=== PATIENT | female | born 1995 | race Caucasian/White ===

== ENCOUNTER 2022-06-16 03:51 | Outpatient (CLI) | payer OTHER, SELFPAY ==
[2022-06-16 16:08] LABS: Glucose,1 Hr (Glucola) 123 mg/dL (80-140)
[2022-06-16 16:19] LABS: Abs Immature Grans 0.01 10^3/uL (0.0-0.06); Absolute Basophil Count 0.01 10^3/uL (0.0-0.2); Absolute Eosinophil Count 0.02 10^3/uL (0.0-0.7); Absolute Lymphocyte Count 2.64 10^3/uL (1.2-3.4); Absolute Monocyte Count 0.54 10^3/uL (0.1-0.8); Absolute Neutrophil Count 5.26 10^3/uL (1.2-6.7); Basophils % 0.1; Eosinophils % 0.2; HCT 33.4 % (36.0-46.0); HGB 11.6 g/dL (11.2-15.7); Immature Grans % 0.1; Lymphocytes % 31.1; MCH 30.1 pg (27.0-33.0); MCHC 34.7 % (32.0-36.0); MCV 87 fL (80-95); MPV 9.3 fL (8.0-11.0); Monocytes % 6.4; Neutrophils % 62.1; Platelet Count 341 10^3/uL (130-400); RBC 3.85 10^6/uL (3.93-5.22); RDW 12.4 % (11.7-14.6); RDW-SD 39.4 fL; WBC 8.48 10^3/uL (4.4-10.8)
[2022-06-16 17:12] LABS: TSH (W/Ref FT4) 0.67 uIU/mL (0.36-3.74)
[2022-06-18 09:10] LABS: Hepatitis B Surface Ag Negative (Negative)
[2022-06-18 09:38] LABS: HIV-1/2 Ag & Ab Screen Negative (Negative)
[2022-06-18 11:02] LABS: Hepatitis C Ab w Rflx HCV PCR Negative (Negative)
[2022-06-18 11:44] LABS: Varicella IgG Antibody Positive (See Note)
[2022-06-18 11:46] LABS: Rubella IgG Ab (UVM) Positive (See Note)
[2022-06-19 15:38] LABS: Syphilis IgG w/Reflex Nonreactive (Nonreactive)
[2022-06-23 01:49] LABS: Specimen WB Whole Blood
[2022-07-10 00:07] LABS: Result Summary NEGATIVE
[2022-07-10 08:58] LABS: Specimen Whole Blood
== END 2022-06-16 03:52 | disposition home or self-care (01) ==
LOC: LBO 03:51
PROVIDERS: Visit Provider Advanced Practice Midwife
DX: Z34.91 Encounter for supervision of normal pregnancy, unspecified, first trimester (principal)
CPT/HCPCS: 81329; 82950; 86787; 86803; 86850; 86900; 86901; 87340; 87389; 81220; 84443; 85025; 86762; 86780

== ENCOUNTER 2022-06-16 18:37 | Outpatient (REF) | payer OTHER, SELFPAY ==
[2022-06-16 17:56] LABS: *AMPHETAMINES SCREEN URINE Negative (Negative); *BARBITURATES SCREEN URINE Negative (Negative); *BENZODIAZEPINES SCREEN URINE Negative (Negative); Cannabinoids THC Negative (Negative); Cocaine Screen,Urine Negative (Negative); METHADONE URINE SCREEN Negative (Negative); OPIATES URINE SCREEN Negative (Negative); Tricyclic Antidepressants Negative (Negative)
[2022-06-18 15:03] LABS: Chlamydia Result Negative (Negative); GC Result Negative (Negative)
[2022-06-24 12:15] LABS: Buprenorphine Negative ng/mL (Cutoff: 5.0); Norbuprenorphine Negative ng/mL (Cutoff: 2.5)
== END 2022-06-16 18:38 | disposition home or self-care (01) ==
LOC: LBN 18:37
PROVIDERS: Visit Provider Advanced Practice Midwife
DX: Z34.91 Encounter for supervision of normal pregnancy, unspecified, first trimester
CPT/HCPCS: 80307; 87491; 87591; 81220; 87086

== ENCOUNTER 2022-12-05 17:07 | Outpatient (REF) | payer OTHER, SELFPAY ==
[2022-12-05 17:34] LABS: Tricyclic Antidepressants Negative (Negative)
[2022-12-05 17:40] LABS: *AMPHETAMINES SCREEN URINE Positive (Negative); *BARBITURATES SCREEN URINE Negative (Negative); *BENZODIAZEPINES SCREEN URINE Negative (Negative); Cannabinoids THC Negative (Negative); Cocaine Screen,Urine Negative (Negative); METHADONE URINE SCREEN Negative (Negative); OPIATES URINE SCREEN Negative (Negative)
== END 2022-12-05 17:08 | disposition home or self-care (01) ==
LOC: LBN 17:07
PROVIDERS: Visit Provider Advanced Practice Midwife
DX: Z34.93 Encounter for supervision of normal pregnancy, unspecified, third trimester (principal); Z3A.36 36 weeks gestation of pregnancy
CPT/HCPCS: 80307

== ENCOUNTER 2022-12-12 16:50 | Outpatient (REF) | payer OTHER, SELFPAY | END 2022-12-12 16:51 | disposition home or self-care (01) | LOC: LBN 16:50 | PROVIDERS: Visit Provider Advanced Practice Midwife | DX: Z34.93 Encounter for supervision of normal pregnancy, unspecified, third trimester (principal) | CPT/HCPCS: 87081 ==

== ENCOUNTER 2023-01-06 01:50 | Inpatient (IN) | payer OTHER, SELFPAY ==
[2023-01-06] VITALS (149 sets, daily range): BP systolic 96–149; BP diastolic 51–89; PULSE 67–131; RESP 16–18; TEMP 36.5–37; O2SAT 86–100; BMI 36.5
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
[2023-01-06 02:31] LABS: HCT 35.9 % (36.0-46.0); MCH 29.1 pg (27.0-33.0); MCHC 33.4 % (32.0-36.0); MCV 87 fL (80-95); MPV 8.9 fL (8.0-11.0); Platelet Count 412 10^3/uL (130-400); RBC 4.12 10^6/uL (3.93-5.22); RDW 12.7 % (11.7-14.6); RDW-SD 40.3 fL
--- NOTE | 2023-01-06 03:15 | W.ANESPROC ---
Intrathecal Analgesia Date Performed: 01/06/23 Procedure Time: 03:05 Requesting Provider: Alessandra Ferguson Procedure Location: Obstetrics Reason Performed: Labor Intrathecal Analgesia Standard Monitors Applied: Blood Pressure, SpO2 and See EMR for corresponding vital signs Patient Position: Sitting Timeout Performed: Yes Sedation Given (Indicate Dose Given): No Sedation given Patient Mental Status: Awake Sterility: Hand Hygiene, Surgical Cap, Surgical Mask, Sterile Gloves, Sterile Drape/Sheet, Sterile Gown and Chlorhexidine Placement Site: L3-L4 Interspace Spinal Needle Type: Rob 25 Gauge Needle Length: 3.5 Inch Spinal Procedure: Site Prepped, Sterile Drape Placed, 1% Lidocaine to skin and subcutaneous tissue with 25G needle, Introducer Needle Used, Spinal Needle Placed, Positive CSF Flow and Medication Injected Paresthesia: Left Paresthesia Duration: Transient and Right Paresthesia Duration: Transient Spinal Local Anesthetic (Indicate Dose Given): Bupivacaine 0.25% PF (ml) Dose:: 1mL Additives (Indicate Dose Given): Fentanyl PF Dose:: 20 mcg and Duramorph PF Dose:: 150mcg Ultrasound: Not Used Number of Attempts (See previous attempts in note section): 3 Procedure Tolerated: No Complications Procedure Outcome: Successful Performed By: Aster Evangelista
[2023-01-06 03:17] LABS: Source Nasal/Nares
[2023-01-06] MEDS: fentaNYL 100 MCG/2 ML VIAL 25 MCG IVP ×2 (03:18→04:35)
[2023-01-06] MEDS: Bupivacaine 0.25% Pres-Free 10 ML VIAL IT (03:31)
[2023-01-06] MEDS: fentaNYL 100 MCG/2 ML VIAL IT (03:31)
--- NOTE | 2023-01-06 03:35 | PGE_ITS ---
Date of service: 01/06/23 Time of Service: 03:35 Pelvic Exam Dilation: 8 Effacement (%): 95 station: -2 Position: LOP Cervix Position: mid Consistency: soft Contractions Monitor Mode: External Contraction Frequency(min): 2-4 Intensity: Moderate/Strong Fetus A Monitor: External (US) Heart Rate Baseline: 125 Variability: Moderate (6-25 BPM) Categories: Category I Accelerations: 15 X 15 Decelerations: None Amniotic Membrane Status: Ruptured Rupture Method: Spontaneous Amniotic Fluid: Meconium Amount: small Date of Membrane Rupture: 01/06/23 Time of Membrane Rupture: 02:20 Assessment and Plan Assessment and plan (1) Uterine contractions: Status: Acute Assessment and plan: A: multipara in active labor meconium fluid, category 1 tracing regional anesthesia to good effect P: monitor for progress through transition consider pitocin augmentation if indicated position to encourage rotation and descent anticipate Objective Abnormal lab results 01/06/23 Range/Units 02:16 WBC 14.50 H (4.4-10.8) 10^3/uL Hct 35.9 L (36.0-46.0) % Plt Count 412 H (130-400) 10^3/uL Pulse BP Pulse Ox 75 124/76 99 01/06/23 03:29 01/06/23 03:29 01/06/23 03:28 Laboratory Results WBC 14.50 10^3/uL (4.4-10.8) H 01/06/23 02:16 RBC 4.12 10^6/uL (3.93-5.22) 01/06/23 02:16 Hgb 12.0 g/dL (11.2-15.7) 01/06/23 02:16 Hct 35.9 % (36.0-46.0) L 01/06/23 02:16 MCV 87 fL (80-95) 01/06/23 02:16 MCH 29.1 pg (27.0-33.0) 01/06/23 02:16 MCHC 33.4 % (32.0-36.0) 01/06/23 02:16 RDW 12.7 % (11.7-14.6) 01/06/23 02:16 Plt Count 412 10^3/uL (130-400) H 01/06/23 02:16 MPV 8.9 fL (8.0-11.0) 01/06/23 02:16 COVID-19 Source Nasal/Nares 01/06/23 03:10 Patient ABO/Rh O Positive 01/06/23 02:16 Antibody Screen NEGATIVE 01/06/23 02:16 Vital Signs Reviewed: Yes Objective Narrative Objective Narrative: PEOPLESOFT CONSULTANT was able to place intrathecal anesthesia after some difficulty Pt given 25 mcg fentanyl IVP during anesthesia placement After pt was made comfortable, SVE for 8/95% vtx -2, meconium fluid noted EFM remains category 1, contractions continue q 2-4 minutes Vital signs are stable, pt dozing in LLP FOB and pt's mother at bedside for support Subjective Interval history since last seen: comfortable, drowsy
[2023-01-06 03:51] LABS: COVID-19 PCR Negative (Negative)
--- NOTE | 2023-01-06 05:06 | W.PM.OBNL1 ---
Date of service: 01/06/23 Time of Service: 05:06 Pelvic Exam Dilation: 9.5 Effacement (%): 100 station: -1 Position: LOT Consistency: soft Contractions Monitor Mode: External Contraction Frequency(min): q2-4 Contraction Duration(sec): 60-70 Intensity: Moderate/Strong Fetus A Monitor: External (US) Heart Rate Baseline: 130 Variability: Moderate (6-25 BPM) Categories: Category I Accelerations: 15 X 15 Decelerations: Early Recurrence: Intermittent Amniotic Membrane Status: Ruptured Assessment and Plan Assessment and plan (1) Uterine contractions: Status: Acute Assessment and plan: A: multipara with intrathecal, pain relief waning progressed to 9.5 cm dilation, vtx descended to -2/-1, LOT category 1 tracing, meconium fluid EFW 3800 gms, pelvis is adequate P: lateral positioning to encourage rotation and descent pt encouraged to rest between contrx reassess for 2nd stage Objective Vital Signs Reviewed: Yes Objective Narrative Objective Narrative: Pt rested well for 1 hr, then began vocalizing with contrx Category 1 tracing, early decel occasionally noted SVE rim, vtx -2/-1, contrax are frequent and strong Attempted trial of pushing while manually reducing rim, but rim persists Pt given fentanyl 25 mcg IVP to assist with pain management Subjective Interval history since last seen: Pain relief from intrathecal is decreasing, pt vocalizing through contractions, occasionally feels pelvic pressure.
--- NOTE | 2023-01-06 06:04 | PGE_ITS ---
Date of service: 01/06/23 Time of Service: 06:04 Informed Consent Informed Consent: Regional Anesthesia and Risk,Benefits,Alternatives Discussed (pt coping poorly with contractions, vocalizing loudly, crying, difficulty moving) Pelvic Exam Dilation: 9 station: -2 Fetus A Monitor: Doppler Heart Rate Baseline: 135 FHR Rhythm: Regular Characteristics: Normal Amniotic Membrane Status: Ruptured Amniotic Fluid: Meconium Assessment and Plan Assessment and plan (1) Uterine contractions: Status: Acute Assessment and plan: A: dilation and descent stalled @ 9/-2 Pt very uncomfortable, requesting REGISTERED NURSE SURGICAL SERVICES to place epidural need for pain management/control No void since admission P: Straight cath to empty bladder Encourage use of nitrous REGISTERED NURSE [employer]GICAL SERVICES paged, pt status reviewed Dr. Charles updated on labor progress Objective Vital Signs Reviewed: Yes Objective Narrative Objective Narrative: vital signs stable, category 1 tracing pt coping poorly with contractions, very tense and upset with pain has received 2 doses fentanyl 25 mcg IVP lack of progress for 1-2 hours noted unable to void, straight cath'ed for 100 ml dark concentrated urine IV site infiltrated, restarted at new site Subjective Interval history since last seen: Pt requesting anesthesia to place epidural since intrathecal has stopped working. Feels the need to void but unable to when on bedside commode. Vocalizing loudly with q2-3 minute contractions.
[2023-01-06] MEDS: Terbutaline 1 MG/ML VIAL 0.25 MG SC (06:38)
--- NOTE | 2023-01-06 06:41 | W.PM.OBNL1 ---
Date of service: 01/06/23 Time of Service: 06:41 Informed Consent Informed Consent: Regional Anesthesia and Risk,Benefits,Alternatives Discussed (pt coping poorly with contractions, vocalizing loudly, crying, difficulty moving) Assessment and Plan Assessment and plan (1) Uterine contractions: Status: Acute Assessment and plan: Contractions are every 2 minutes CLINICAL OPERATIONS CONSULTANT in room to place epidural Terbutaline 0.25 mg SC given to decrease uterine activity for epidural insertion (2) Slow progress in first stage of labor: Status: Acute Objective Abnormal lab results 01/06/23 Range/Units 02:16 WBC 14.50 H (4.4-10.8) 10^3/uL Hct 35.9 L (36.0-46.0) % Plt Count 412 H (130-400) 10^3/uL Pulse BP Pulse Ox 77 137/78 99 01/06/23 04:31 01/06/23 04:31 01/06/23 03:28 Laboratory Results WBC 14.50 10^3/uL (4.4-10.8) H 01/06/23 02:16 RBC 4.12 10^6/uL (3.93-5.22) 01/06/23 02:16 Hgb 12.0 g/dL (11.2-15.7) 01/06/23 02:16 Hct 35.9 % (36.0-46.0) L 01/06/23 02:16 MCV 87 fL (80-95) 01/06/23 02:16 MCH 29.1 pg (27.0-33.0) 01/06/23 02:16 MCHC 33.4 % (32.0-36.0) 01/06/23 02:16 RDW 12.7 % (11.7-14.6) 01/06/23 02:16 Plt Count 412 10^3/uL (130-400) H 01/06/23 02:16 MPV 8.9 fL (8.0-11.0) 01/06/23 02:16 COVID-19 Source Nasal/Nares 01/06/23 03:10 SARS-CoV-2 (PCR) Negative (Negative) 01/06/23 03:10 Patient ABO/Rh O Positive 01/06/23 02:16 Antibody Screen NEGATIVE 01/06/23 02:16 Results Hemoglobin/Hematocrit: Hgb 12.0 g/dL (11.2-15.7) 01/06/23 02:16 Hct 35.9 % (36.0-46.0) L 01/06/23 02:16 Abnormal Lab Findings: Abnormal Labs 01/06/23 02:16 WBC 14.50 H Hct 35.9 L Plt Count 412 H
[2023-01-06] MEDS: FentaNYL/ROPIvacaine 2 mcg/ml and 0.1% 200 ML CADD Cassette EP (06:45)
[2023-01-06] MEDS: Lactated Ringers 1,000 ML 125 ML IV ×3 (07:04→11:25)
[2023-01-06] MEDS: Lactated Ringers 500 ML IV ×2 (07:57→09:30)
--- NOTE | 2023-01-06 08:25 | W.PM.OBNL1 ---
Date of service: 01/06/23 Time of Service: 08:25 Informed Consent Informed Consent: Regional Anesthesia and Risk,Benefits,Alternatives Discussed Pelvic Exam Dilation: 9 (unchanged exam, cvx becoming somewhat edematous) station: -2 Contractions Monitor Mode: External Contraction Frequency(min): q3-4 Intensity: Moderate/Strong Fetus A Heart Rate Baseline: 135 Variability: Moderate (6-25 BPM) Categories: Category I Accelerations: 15 X 15 Decelerations: None Amniotic Membrane Status: Ruptured Assessment and Plan Assessment and plan (1) Slow progress in first stage of labor: Status: Acute Assessment and plan: A: Effective epidural anesthesia Contractions returning after terb dose given 0630 No descent or further progress from (since 0500) Category 1 tracing P: Reviewed pt's labor course with Dr. Knight IUPC inserted in attempt to improve contraction assessment Possible indication for surgical delivery discussed with pt (2) Uterine contractions: Status: Acute Objective Vital Signs Reviewed: Yes Subjective Interval history since last seen: Pt is comfortable with epidural anesthesia, has been doing stretches to encourage descent
--- NOTE | 2023-01-06 09:01 | W.ANESNEU ---
Epidural/Spinal Catheter Date Performed: 01/06/23 Procedure Start: 06:41 Procedure Stop: 07:10 Requesting Provider: Alessandra Ferguson Procedure Location: Obstetrics Reason Performed: Labor Epidural Standard Monitors Applied: Blood Pressure, SpO2 and See EMR for corresponding vital signs Patient Position: Sitting Sedation Given (Indicate Dose Given): No Sedation given Patient Mental Status: Awake Sterility: Hand Hygiene, Surgical Cap, Surgical Mask, Sterile Gloves, Sterile Drape/Sheet and Chlorhexidine Procedure Location: L2-L3 Interspace Epidural Needle: Tuohy 17 Guage Needle Length: 3.5 Inch Needle Approach: Midline Epidural Procedure: Skin Prepped, Sterile Drape Placed, 1% Lidocaine to skin and subcutaneous tissue with 25G needle, Tuohy Needle placed, WESTLEY to Saline Used, Epidural Catheter Placed and Positive Heme Noted (During first procedure attempt, WESTLEY to saline and catheter threaded, positive heme. Catheter and needle removed.) Catheter Placed?: Catheter Placed Test Dose (Indicate Dose Given): 3ml 1.5% Lidocaine with 1:200K Epinephrine Given Loss of Resistance Depth (cm): 8 Catheter depth at skin (cm): 16 Dressing: Sorbaview Dressing Placed, Mastisol Used and Dressing reinforced with Tape Epidural Provider Bolus (Indicate Dose Given): Total bolus dose given in 3-5 ml divided doses and Total Ropivacaine 0.1% with Fentanyl 2mcg/ml Given from pump. (ml) Dose:: 10 mL in divided doses Additives (Indicate Dose Given ): None Infusion Medication: Medication Infusion Began Medication Infusion: Ropivacaine 0.1% with Fentanyl 2mcg/ml Maintenance Infusion Rate (ml/hour): 12 PCEA Bolus Dose (ml): 5 Block Level: T9 Paresthesia: None Ultrasound: Not Used Number of Attempts (See previous attempts in note section): 2 Procedure Tolerated: No Complications and Patient tolerated well Procedure Outcome: Successful Procedure Comment:: Paged back after placement of previous intrathecal anesthetic that was technically difficult to place and required multiple patient repositions. Return to patient bedside at 6:30 and covered again the difference between an epidural and intrathecal. Patient wishes to proceed with epidural placement and was checked to be at 9.5 centimeters prior to start of procedure. Full discussion was had with patient and family about the use of epidural catheter if C/S was required given the difficulty of the SAB placement. Patient and family verbalizes understanding. Handoff reported to Carolyn Fierro CRNA. Performed By: Aster Evangelista
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
[2023-01-06] MEDS: AZITHROMYCIN 500 MG in Normal Saline 250 ML 250 MG IVPB (10:50)
--- NOTE | 2023-01-06 10:51 | W.PM.OBNL1 ---
Date of service: 01/06/23 Time of Service: 10:51 Informed Consent Informed Consent: Section Delivery, Regional Anesthesia and Risk,Benefits,Alternatives Discussed Contractions Monitor Mode: Internal Contraction Frequency(min): 3 Fetus A Heart Rate Baseline: 145 Variability: Moderate (6-25 BPM) Categories: Category I Assessment and Plan Assessment and plan (1) Arrested labor: Status: Acute Assessment and plan: Vaginal atrophy patient has failed to dilate her cervix beyond 9 cm, cervix is edematous, vertex is not well into the pelvis. Would all suggest labor arrest. Was benefits alternatives of section discussed with patient, and her . a full informed consent obtained. (2) 40 weeks gestation of : Status: Acute Objective Abnormal lab results 01/06/23 Range/Units 02:16 WBC 14.50 H (4.4-10.8) 10^3/uL Hct 35.9 L (36.0-46.0) % Plt Count 412 H (130-400) 10^3/uL Temp Pulse Resp BP Pulse Ox 97.9 F 82 18 126/74 97 01/06/23 09:52 01/06/23 10:42 01/06/23 09:52 01/06/23 10:42 01/06/23 09:11 Laboratory Results WBC 14.50 10^3/uL (4.4-10.8) H 01/06/23 02:16 RBC 4.12 10^6/uL (3.93-5.22) 01/06/23 02:16 Hgb 12.0 g/dL (11.2-15.7) 01/06/23 02:16 Hct 35.9 % (36.0-46.0) L 01/06/23 02:16 MCV 87 fL (80-95) 01/06/23 02:16 MCH 29.1 pg (27.0-33.0) 01/06/23 02:16 MCHC 33.4 % (32.0-36.0) 01/06/23 02:16 RDW 12.7 % (11.7-14.6) 01/06/23 02:16 Plt Count 412 10^3/uL (130-400) H 01/06/23 02:16 MPV 8.9 fL (8.0-11.0) 01/06/23 02:16 COVID-19 Source Nasal/Nares 01/06/23 03:10 SARS-CoV-2 (PCR) Negative (Negative) 01/06/23 03:10 Patient ABO/Rh O Positive 01/06/23 02:16 Antibody Screen NEGATIVE 01/06/23 02:16 Subjective Interval history since last seen: Patient seen and has been examined by our midwifery service. No cervical change. Still 9 cm with failure to descend. Saw the patient again. Risk benefits and alternatives of delivery discussed. Full informed consent was obtained. Patient understands the risk of infection, bleeding, injury to surrounding organs, risk of anesthesia. All questions were answered with Results Hemoglobin/Hematocrit: Hgb 12.0 g/dL (11.2-15.7) 01/06/23 02:16 Hct 35.9 % (36.0-46.0) L 01/06/23 02:16 Abnormal Lab Findings: Abnormal Labs 01/06/23 02:16 WBC 14.50 H Hct 35.9 L Plt Count 412 H
[2023-01-06] MEDS: Ondansetron 4 MG/2 ML VIAL IVP (10:53)
[2023-01-06] MEDS: Bupivacaine 0.25% Pres-Free 30 ML VIAL (11:41)
[2023-01-06] MEDS: ceFAZolin 2 GM/50 ML BAG IVPB (11:42)
--- NOTE | 2023-01-06 13:33 | W.PM.OBCSECT ---
Date of service: 01/06/23 Time of Service: 13:33 Operative Note Operative Note Delivery Method: Unscheduled STAT: No and Primary NTSV>37 Weeks: No DATE OF PROCEDURE: 01/06/23 PRE-OP DIAGNOSES: Term , labor arrest POST-OP DIAGNOSES: same Delivery of a viable male , persistent occiput posterior PROCEDURE: Primary low transverse section SURGEON: Juhi Knight Crew Person: Audrey Jasmine Anesthesia: local and epidural Estimated blood loss (mL): 500 Pathology: none sent Complications: None Patient was transported to: floor Patient's condition: stable Indications: Labor arrest at 8 cm Findings: Viable male . Persistent occiput posterior. Normal-appearing tubes, ovaries, uterus. Procedure Description: After full informed consent was obtained, patient taken the operating suite with an IV running. She is placed in the dorsal supine position and epidural was redosed for surgical analgesia. She was placed with a leftward tilt and prepped and draped in the usual sterile fashion including vaginal preparation. vertex was noted to be well out of the pelvis and cervix approximately 8 cm with significant edema. A suspected occiput posterior position. Hooks catheter had been previously inserted for continuous bladder drainage. Pneumatic Pression stockings were placed for DVT prophylaxis. She received 2 g of Ancef and 500 mg of Zithromax. After analgesia was tested and found to be adequate, quarter percent Marcaine was used to infiltrate the surgical site. A low transverse skin incision was made and carried down to the underlying fascia which was nicked in the midline and extended laterally. The fascia was then split from the rectus muscles rectus muscles identified split in the midline peritoneum identified tented up and entered sharply and the peritoneal incision extended superiorly and inferiorly. At this point the bladder blade was inserted and the vesicouterine peritoneum identified tented up and entered sharply. Bladder blade was reinserted after creation of the bladder flap. A low transverse uterine incision was made with a scalpel and extended bluntly laterally. Noted was be the vertex in the occiput posterior position with mouth and nose at the site of the surgical incision. With meticulous attention to the lower uterine segment the vertex was delivered through the incision. There was no evidence of nuchal cord. Shoulders followed with ease. Three-vessel cord was noted clamped x2 and cut after the appropriate interval and the was handed off to the waiting police or patrol park officer. At this point cord blood gases segment and cord blood samples were obtained. Due to appropriate Apgars, cord blood gas was not sent to the lab. The placenta was manually expressed from the uterus and the uterus cleared of all clot and debris. At this point the uterus was exteriorized and the uterine incision was closed using 0 Monocryl suture first in a running locked fashion, second layer was imbricating. The uterine incision was again inspected and found to be hemostatic. Uterus was returned to the abdomen and abdomen irrigated with copious amounts of normal saline. Uterine incision was then again reinspected and found to be hemostatic. At this point the fascial incision was closed using 0 Vicryl suture in a running fashion. Subcu was reapproximated with 3-0 Vicryl and the skin edge reapproximated with 4-0 undyed Monocryl in a subcuticular fashion. Mastisol and Steri-Strips were placed as well as a sterile dressing. The uterus was firm and 2 cm below the umbilicus. Patient was taken back to the center with a Hooks catheter draining clear yellow urine EBL: 500 mL Fluids: Crystalloid per anesthesia Pathology: None sent Findings: Delivery of a viable male infant from the persistent occiput posterior position. Normal tubes, ovaries, uterus. Complications: None apparent.
--- NOTE | 2023-01-06 14:25 | W.ANESPOSTOP ---
Postoperative Evaluation Date, Time and Location Date Performed: 01/06/23 Time Performed: 14:28 Patient Location: Obstetrics Vital Signs Most Recent Imported Vital Signs: Most Recent Vital Signs Temp Pulse Resp BP Pulse Ox 36.9 C 67 17 123/73 100 01/06/23 10:57 01/06/23 14:23 01/06/23 10:57 01/06/23 14:12 01/06/23 14:23 Pain Score Most Recent Pain Score: Most Recent Pain Score Pain Level [Abdomen] 0 01/06/23 10:57 Assessment Mental Status: Awake (Alert & Oriented to Patient Baseline) Airway and Respiratory Function: Patent airway with normal (patient baseline) respiratory exam Cardiovascular Function: Hemodynamically Stable Hydration Status: Adequately Hydrated Nausea & Vomiting: No Nausea or Vomiting Pain: Pain is tolerable per patient Peripheral Nerve Block: Other (Epidural appropriately resolving. Reported some discomfort, but tolerable at this time. Catheter removed with tip intact by myself in the operating room. )
--- NOTE | 2023-01-06 16:55 | OBPPV_ITS ---
Date of service: 01/06/23 Time of Service: 16:56 Assessment and Plan Assessment and plan (1) Status post primary low transverse section: Status: Acute Assessment and plan: Patient is postoperative day #0 status post primary low-transverse section for arrest of labor. Overall doing well. Will encourage ambulation. Hooks catheter to be removed when patient ambulatory. CBC pending for the morning. Pain control as needed. All questions answered tonight. (2) Arrested labor: Status: Acute Subjective Subjective Interval history: Patient seen this afternoon. Doing well. Pain is well controlled. Breast- feeding without difficulty. All questions answered and surgical procedure reviewed. Rarden baby status: Doing well Rarden feeding status: Exclusively breast feeding Exam Physical Exam Vital signs: Temp Pulse Resp BP Pulse Ox 98.6 F 75 16 105/63 98 01/06/23 15:39 01/06/23 16:25 01/06/23 15:39 01/06/23 16:25 01/06/23 15:58 Constitutional Constitutional: no acute distress Respiratory Exam Respiratory Exam: Normal Cardiovascular Exam Cardiovascular Exam: Normal Abdominal Exam Abdomen: Tender Fundal Exam Fundus: Below Umbilicus and Firm Results Hemoglobin/Hematocrit: Hgb 12.0 g/dL (11.2-15.7) 01/06/23 02:16 Hct 35.9 % (36.0-46.0) L 01/06/23 02:16 Abnormal Lab Findings: Abnormal Labs 01/06/23 02:16 WBC 14.50 H Hct 35.9 L Plt Count 412 H
[2023-01-06] MEDS: Ketorolac 30 MG/ML VIAL IVP (18:10)
[2023-01-06] MEDS: Normal Saline Flush 10 ML SYR IVP (18:39)
[2023-01-06] MEDS: oxyCODONE 5 mg/Acetaminophen 325 mg TAB PO (19:56)
[2023-01-07 01:16] VITALS: BP 104/62; PULSE 72; RESP 16; TEMP 36.7
[2023-01-07] MEDS: Docusate Sodium 100 MG CAP PO ×2 (01:27→20:07)
[2023-01-07] MEDS: oxyCODONE 5 mg/Acetaminophen 325 mg TAB PO ×4 (01:27→20:08)
[2023-01-07] MEDS: Ketorolac 30 MG/ML VIAL IVP ×2 (01:27→08:31)
[2023-01-07 05:50] VITALS: BP 105/66; PULSE 75; RESP 15; TEMP 36.7
[2023-01-07 07:08] LABS: Abs Immature Grans 0.06 10^3/uL (0.0-0.06); Absolute Basophil Count 0.03 10^3/uL (0.0-0.2); Absolute Eosinophil Count 0.03 10^3/uL (0.0-0.7); Absolute Monocyte Count 0.91 10^3/uL (0.1-0.8); Basophils % 0.2; Eosinophils % 0.2; HCT 27.8 % (36.0-46.0); HGB 9.5 g/dL (11.2-15.7); Immature Grans % 0.4; Lymphocytes % 23.3; MCH 29.7 pg (27.0-33.0); MCHC 34.2 % (32.0-36.0); MCV 87 fL (80-95); MPV 9.6 fL (8.0-11.0); Monocytes % 6.8; Neutrophils % 69.1; Platelet Count 316 10^3/uL (130-400); RDW 13.2 % (11.7-14.6); WBC 13.37 10^3/uL (4.4-10.8)
[2023-01-07 07:09] LABS: Absolute Lymphocyte Count 3.12 10^3/uL (1.2-3.4); Absolute Neutrophil Count 9.24 10^3/uL (1.2-6.7)
[2023-01-07 08:15] VITALS: BP 104/57; PULSE 85; RESP 16; TEMP 36.9; O2SAT 95
[2023-01-07] MEDS: Normal Saline Flush 10 ML SYR IVP (08:31)
[2023-01-07] MEDS: Pantoprazole 40 MG TABCR PO (08:32)
[2023-01-07] MEDS: Sertraline 50 MG TAB PO (08:33)
--- NOTE | 2023-01-07 08:42 | OBPPV_ITS ---
Date of service: 01/07/23 Time of Service: 08:42 Assessment and Plan Assessment and plan (1) Status post primary low transverse section: Status: Acute Assessment and plan: Postoperative day 1 status post primary low-transverse section for labor arrest and persistent occiput posterior position. Doing well. Ambulating. Tolerating regular diet. Vital signs are stable. Morning he moglobin stable at 9.5. We will continue to monitor. Routine care. Anticipate discharge in the next 24 to 48 hours. Exam Physical Exam Vital signs: Temp Pulse Resp BP Pulse Ox 98.1 F 75 15 105/66 99 01/07/23 05:50 01/07/23 05:50 01/07/23 05:50 01/07/23 05:50 01/06/23 20:00 Vital Signs Reviewed: Yes Constitutional Constitutional: no acute distress HEENT Exam HEENT Exam: Normal Neck Exam Neck Exam: Normal Respiratory Exam Respiratory Exam: Normal Abdominal Exam Abdomen: Tender Comments: Incision without areas of erythema or ecchymosis. Pressure dressing was removed with scant serosanguineous drainage. Fundal Exam Fundus: Below Umbilicus and Firm Extremities Exam Extremity Exam: Normal; negative Calf Tenderness or Edema Skin Exam Skin Exam: Normal Results Hemoglobin/Hematocrit: Hgb 9.5 g/dL (11.2-15.7) L D 01/07/23 06:05 Hct 27.8 % (36.0-46.0) L 01/07/23 06:05 Abnormal Lab Findings: Abnormal Labs 01/06/23 01/07/23 02:16 06:05 WBC 14.50 H 13.37 H RBC 3.20 L Hgb 9.5 L D Hct 35.9 L 27.8 L Plt Count 412 H Absolute Neutrophils 9.24 H Absolute Monocytes 0.91 H
[2023-01-07 13:15] VITALS: BP 114/67; PULSE 85; RESP 16; TEMP 36.5; O2SAT 99
[2023-01-07] MEDS: Acetaminophen 325 MG TAB 650 MG PO (13:28)
[2023-01-07] MEDS: Ibuprofen 600 MG TAB PO (18:11)
[2023-01-07 20:03] VITALS: BP 111/64; PULSE 76; RESP 16; TEMP 36.9
[2023-01-08 03:25] VITALS: BP 103/63; PULSE 74; RESP 16; TEMP 36.8
[2023-01-08] MEDS: Ibuprofen 600 MG TAB PO ×2 (03:29→14:28)
[2023-01-08] MEDS: oxyCODONE 5 mg/Acetaminophen 325 mg TAB PO (03:29)
[2023-01-08 07:35] VITALS: BP 108/65; PULSE 64; RESP 16; TEMP 36.7; O2SAT 99
[2023-01-08] MEDS: Sertraline 50 MG TAB PO (08:25)
[2023-01-08] MEDS: Pantoprazole 40 MG TABCR PO (08:25)
[2023-01-08 12:05] VITALS: BP 117/70; PULSE 75; RESP 16; TEMP 36.8; O2SAT 98
--- NOTE | 2023-01-08 13:41 | W.PM.OBPNV1 ---
Date of service: 01/08/23 Time of Service: 12:45 Assessment and Plan Assessment and plan (1) Status post primary low transverse section: Assessment and plan: D/c home today. Plans abstinence for now, uncertain what she wants to do after that. Reviewed reasons to call. Needs f/u visit in 1-2wks, then 6wks. Subjective Subjective Interval history: Pt doing well POD#2. Minimal lochia. Pain well controlled on PO meds. Tolerating reg diet, no n/v, +BM. Breast-feeding going ok, slightly sore but not too bad. Out of bed without difficulty. Exam Physical Exam Vital signs: Temp Pulse Resp BP Pulse Ox 98.2 F 75 16 117/70 98 01/08/23 12:05 01/08/23 12:05 01/08/23 12:05 01/08/23 12:05 01/08/23 12:05 Vital Signs Reviewed: Yes Constitutional Constitutional: no acute distress and cooperative Detailed HEENT Exam Head: Present normocephalic and atraumatic Respiratory Exam Respiratory Exam: Normal Abdominal Exam Abdomen: Tender (mildly) Comments: Incision clean, dry, intact Fundal Exam Fundus: Below Umbilicus and Firm Extremities Exam Extremity Exam: Edema (trace) Detailed Neurological Exam Neurological: Present alert, oriented X3 and CN II-XII intact Results Hemoglobin/Hematocrit: Hgb 9.5 g/dL (11.2-15.7) L D 01/07/23 06:05 Hct 27.8 % (36.0-46.0) L 01/07/23 06:05 Abnormal Lab Findings: Abnormal Labs 01/06/23 01/07/23 02:16 06:05 WBC 14.50 H 13.37 H RBC 3.20 L Hgb 9.5 L D Hct 35.9 L 27.8 L Plt Count 412 H Absolute Neutrophils 9.24 H Absolute Monocytes 0.91 H
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
[2023-01-08] MEDS: Acetaminophen 325 MG TAB 650 MG PO (14:28)
== END 2023-01-08 15:55 | disposition home or self-care (01) | DRG 788 ==
PROVIDERS: Obstetrics & Gynecology; Admitting Provider Advanced Practice Midwife; Visit Provider Advanced Practice Midwife
PROC: 10D00Z1 Extraction of Products of Conception, Low, Open Approach (ICD-10-PCS; CPT 59514; principal; 2023-01-06 10:45)
DX: O99.214 Obesity complicating childbirth (principal); Z3A.40 40 weeks gestation of pregnancy; Z37.0 Single live birth; O62.1 Secondary uterine inertia; O99.344 Other mental disorders complicating childbirth; F41.8 Other specified anxiety disorders; F90.9 Attention-deficit hyperactivity disorder, unspecified type; O75.89 Other specified complications of labor and delivery; R51.9 Headache, unspecified; E66.9 Obesity, unspecified
CPT/HCPCS: 59514; 36415; 85027; 86850; 86900; 86901; 87635; 85025; J0131; J0456; J0690; J1100; J1885; J2370; J2405; J3010